=== PATIENT | male | born 1990 ===

== ENCOUNTER 2021-10-31 09:42 | Outpatient (CLI) | payer OTHER | END 2021-10-31 10:15 | disposition home or self-care (01) | LOC: MRI 09:42 | PROVIDERS: ATTEND Physical Medicine & Rehabilitation | DX: M25.511 Pain in right shoulder (principal); M75.121 Complete rotator cuff tear or rupture of right shoulder, not specified as traumatic | CPT/HCPCS: 73221 ==

== ENCOUNTER 2024-05-27 09:58 | Outpatient (CLI) | payer OTHER ==
[2024-05-27 11:09] LABS: HEMATOCRIT 43.3 % (39.0-48.0); HEMOGLOBIN 14.8 g/dL (13-16.00); MEAN CELL VOLUME 91.3 fL (80.0-100.00); MEAN CORPUSCULAR HEMOGLOBIN 31.1 pg (27.00-32.0); MEAN CORPUSCULAR HGB CONC 34.1 g/dl (32.0-36.0); PLATELET COUNT 251 K/uL (150-450); RED BLOOD COUNT 4.74 M/uL (4.00-6.00); RED CELL DISTRIBUTION WIDTH 13.5 % (11.5-14.5)
[2024-05-27 11:09] LABS: URINE APPEARANCE Clear; URINE BILIRRUBIN Negative (NEGATIVE); URINE BLOOD Negative; URINE COLOR Yellow; URINE GLUCOSE Negative (NEGATIVE); URINE KETONE Negative (NEGATIVE); URINE LEUKOCYTE Negative; URINE NITRATE Negative; URINE PROTEIN Negative (NEGATIVE); URINE UROBILINOGEN 0.2 E.U./dl
[2024-05-27 11:12] LABS: URINE BACTERIA 6.1 uL (0.0-1933); URINE RBC 2.3 uL (0.0-20.8)
[2024-05-27 11:42] LABS: URINE EPITHELIAL CELLS 0.9 uL (0.0-38.8)
[2024-05-27 11:42] LABS: ALBUMIN 4.2 gm/dL (3.4-5.0); BILIRUBIN TOTAL 0.31 mg/dL (0.3-1.2); CALCIUM 8.9 mg/dL (8.5-10.1); CREATININE SERUM 1.18 mg/dL (0.70-1.30); GFR 71.54; GLOBULINA 3.2 G/DL (2.4-3.5); POTASSIUM 4.54 mEq/L (3.5-5.1); T4 FREE 0.87 NG/ML (0.76-1.46); TOTAL PROTEIN 7.4 gm/dL (6.4-8.2); TSH 0.769 uIU/mL (0.358-3.74)
[2024-05-27 11:43] LABS: CHOL HDL RATIO 7.2 (0-5.0)
== END 2024-05-27 10:01 | disposition home or self-care (01) ==
LOC: LAB 09:58
DX: E03.9 Hypothyroidism, unspecified (principal); R73.9 Hyperglycemia, unspecified; E78.49 Other hyperlipidemia; I11.0 Hypertensive heart disease with heart failure; Z13.29 Encounter for screening for other suspected endocrine disorder; E05.90 Thyrotoxicosis, unspecified without thyrotoxic crisis or storm